=== PATIENT | female | born 1980 | race Hispanic/Latino ===

== ENCOUNTER 2017-03-14 10:39 | Emergency (ER) | payer OTHER ==
[~2017-03-14] VITALS: Ht 163.8 cm; Wt 67.1 kg
[2017-03-14] MEDS ORDERED: KEFLEX500 MG PO (11:26)
[2017-03-14] MEDS ORDERED: TETANUS/DIPHTHERIA TOX ADULT 0.5 ML SYR IM ONE (11:30)
[2017-03-14] MEDS ORDERED: LIDOCAINE HCL 1% LOCAL INJ 20 ML VIAL INJ ONE (12:00)
[2017-03-14 13:01] VITALS: BP 123/99
== END 2017-03-14 13:17 | disposition home or self-care (01) ==
LOC: ER 10:39
DX: S66.127A Laceration of flexor muscle, fascia and tendon of left little finger at wrist and hand level, initial encounter (principal); W26.0XXA Contact with knife, initial encounter; Y93.G3 Activity, cooking and baking; Y92.000 Kitchen of unspecified non-institutional (private) residence as the place of occurrence of the external cause
CPT/HCPCS: 12001; 90471; 90714; 99283; J2001